=== PATIENT | male | born 1945 | race Hispanic/Latino ===

== ENCOUNTER 2019-06-10 09:46 | Inpatient (IN) | payer OTHER ==
[~2019-06-10] VITALS: Ht 175.3 cm; Wt 108.0 kg
[2019-06-10] MEDS ORDERED: ADENOSINE 3 MG/ML 2ML VIAL IV ONE (09:57)
[2019-06-10] MEDS ORDERED: DILTIAZEM HCL 125 MG/25 ML VIAL IV ONE (10:05)
[2019-06-10 10:16] LABS: BASOPHILS % (AUTO) 0.3 % (0.0-5.0); EOSINOPHILS % (AUTO) 0.1 % (0.0-8.0); HEMATOCRIT 45.9 % (42-54); LYMPHOCYTES % (AUTO) 4.3 % (21.0-51.0); MEAN CORPUSCULAR HGB CONC 34.4 g/dL (32.0-36.0); MONOCYTES % (AUTO) 1.9 % (3.0-13.0); NEUTROPHILS % (AUTO) 93.4 % (40.0-77.0); PLATELET COUNT (AUTO) 225 K/uL (130-400); RED CELL DISTRIBUTION WIDTH 13.1 % (11.0-15.5); WHITE BLOOD COUNT (AUTO) 11.6 K/uL (4.8-10.8)
[2019-06-10 10:23] LABS: CREATININE 1.2 mg/dL (0.5-1.5); POTASSIUM 3.9 mmol/L (3.5-5.1)
[2019-06-10 10:35] LABS: INR 0.98 (0.85-1.15); PARTIAL THROMBOPLASTIN TIME 25.9 SEC (26.3-35.5); PROTHROMBIN TIME 10.3 SEC (9.6-11.6)
[2019-06-10] MEDS ORDERED: SODIUM CHLORIDE 0.9% 1000ML 1,000 ML IV ONE (11:45)
[2019-06-10] MEDS ORDERED: DILTIAZEM 125MG+100 ML NS 125 ML IV SCH (12:15)
[2019-06-10] MEDS ORDERED: ACETAMINOPHEN-CODEINE 300/30MG TAB PO PRN (12:45)
[2019-06-10] MEDS ORDERED: LACTULOSE 20 GM/30 ML UDCUP PO PRN (12:45)
[2019-06-10] MEDS ORDERED: ONDANSETRON HCL 4 MG/2 ML VIAL IV PRN (12:45)
[2019-06-10] MEDS ORDERED: LIDOCAINE HCL-MPF 1% 2ML VIAL IV PRN (12:45)
[2019-06-10] MEDS ORDERED: DILTIAZEM HCL 60 MG TABLET PO SCH (12:45)
[2019-06-10] MEDS ORDERED: DIPHENHYDRAMINE HCL 25 MG CAPSULE PO PRN (12:45)
[2019-06-10] MEDS ORDERED: GLUCAGON 1MG KIT 1 MG ML IM PRN (12:45)
[2019-06-10] MEDS ORDERED: DILTIAZEM HCL 125 MG/25 ML 125 MG in SODIUM CHLORIDE 0.9% 100 ML IV PRN (12:45)
[2019-06-10] MEDS ORDERED: POTASSIUM CHLORIDE 20MEQ/100ML 100 ML IV PRN (12:45)
[2019-06-10] MEDS ORDERED: NITROGLYCERIN 0.4 MG SL TAB SL PRN (12:45)
[2019-06-10] MEDS ORDERED: ACETAMINOPHEN 325 MG TAB PO PRN (12:45)
[2019-06-10] MEDS ORDERED: DEXTROSE 50%-WATER 50 ML DISP.SYRIN IV PRN (12:45)
[2019-06-10] MEDS ORDERED: POTASSIUM CHLORIDE 10% ELIXIR 20 MEQ/15 ML UDCUP PO PRN (12:45)
[2019-06-10] MEDS ORDERED: HYDRALAZINE HCL 20 MG/ML VIAL IV PRN (12:45)
[2019-06-10] MEDS ORDERED: DILTIAZEM HCL 60 MG TABLET ONE ×2 (13:03→23:38)
[2019-06-10] MEDS ORDERED: ENOXAPARIN SODIUM 100 MG/1 ML SQ ONE (13:03)
[2019-06-10] MEDS: BENZONATATE 100 MG CAPSULE PO SCH (14:00)
[2019-06-10] MEDS ORDERED: ONDANSETRON HCL 4 MG/2 ML VIAL ONE (14:32)
[2019-06-10] MEDS: INSULIN HUMULIN R 100 UNIT/ML 3ML SQ SCH ×2 (16:30→21:00)
[2019-06-10] MEDS ORDERED: ACETAMINOPHEN 325 MG TAB ONE (20:08)
[2019-06-10] MEDS ORDERED: LOVA10TA2 PO (22:23)
[2019-06-10] MEDS ORDERED: LOSA1TAB54 PO (22:23)
[2019-06-10] MEDS ORDERED: AEC81 PO (22:23)
[2019-06-10] MEDS ORDERED: METF-444 PO (22:23)
[2019-06-10] MEDS ORDERED: AMLO5TAB9 PO (22:23)
[2019-06-10] MEDS ORDERED: LATA7.5D OP (22:23)
[2019-06-10] MEDS ORDERED: FAMOTIDINE 20MG TAB 20 MG TAB ONE (23:38)
[2019-06-11] VITALS (23 sets, daily range): BP systolic 106–138; BP diastolic 65–86
[2019-06-11 06:23] LABS: BASOPHILS % (AUTO) 0.4 % (0.0-5.0); EOSINOPHILS % (AUTO) 1.6 % (0.0-8.0); HEMATOCRIT 42.6 % (42-54); LYMPHOCYTES % (AUTO) 22.7 % (21.0-51.0); MEAN CORPUSCULAR HEMOGLOBIN 30.1 pg (27.0-33.0); MEAN CORPUSCULAR HGB CONC 33.5 g/dL (32.0-36.0); MEAN CORPUSCULAR VOLUME 89.8 fL (79-99); MONOCYTES % (AUTO) 7.4 % (3.0-13.0); NEUTROPHILS % (AUTO) 67.9 % (40.0-77.0); PLATELET COUNT (AUTO) 203 K/uL (130-400); RED BLOOD CELL COUNT(AUTO) 4.75 MIL/uL (4.50-6.20); RED CELL DISTRIBUTION WIDTH 13.1 % (11.0-15.5); WHITE BLOOD COUNT (AUTO) 5.1 K/uL (4.8-10.8)
--- NOTE | 2019-06-11 06:30 | NUR ---
ADMISSION RECEIVED FROM ER VIA STRETCHER. WALKED TO BED AND PLACED ON MONITOR,NIBP,PULSE OXIMETER. CALL LIGHT GIVEN AND EXPLAINED. DENIES PAIN. ENCOURAGED TO CALL FOR WANTS OR NEEDS. NPO AND AWARE OF THIS. FAMILY MEMBER AT BEDSIDE.
[2019-06-11 06:35] LABS: MAGNESIUM 1.9 mg/dL (1.80-2.40); PHOSPHORUS 2.5 mg/dL (2.5-4.9); POTASSIUM 3.2 mmol/L (3.5-5.1); THYROID STIMULATING HORMONE 0.63 uIU/mL (0.36-3.74)
[2019-06-11] MEDS ORDERED: REGADENOSON 0.4 MG/5 ML PF SYG IVP SCH (07:15)
[2019-06-11] MEDS: INSULIN HUMULIN R 100 UNIT/ML 3ML SQ SCH ×4 (07:30→21:00)
[2019-06-11] MEDS: SODIUM CHLORIDE 0.9% 1000ML 1,000 ML IV SCH ×2 (08:37→18:37)
[2019-06-11] MEDS ORDERED: ENOXAPARIN SODIUM 40 MG/0.4 ML SYRINGE SQ SCH (09:00)
[2019-06-11] MEDS: BENZONATATE 100 MG CAPSULE PO SCH ×3 (09:00→21:00)
[2019-06-11] MEDS: ASPIRIN 325 MG TABLET PO SCH (12:05)
[2019-06-11] MEDS: METOPROLOL TARTRATE 25 MG TAB PO SCH ×3 (12:05→20:52)
[2019-06-11] MEDS: FAMOTIDINE 20MG TAB 20 MG TAB PO SCH ×3 (12:06→20:55)
--- NOTE | 2019-06-11 13:43 | NUR ---
DC PLAN PER PATIENT IS INDEPENDENT, LIVES WITH SPOUSE AND DAUGHTER, HAS CPAP AT HOME, NO PROVIDER OR MEDICAL SERVICES AND FEELS SAFE TO RETURN HOME. Addendum: 06/11/19 at 1345 by BEVERLY ALEXIS Amended: Links added.
[2019-06-11] MEDS: POTASSIUM CHLORIDE 20 MEQ ERTAB PO PRN ×3 (14:45→18:27)
--- NOTE | 2019-06-11 16:26 | NUR ---
RD NOTIFICATION Dx: Afib, Constipation. Hx: DM, Obesity, Hyperlipidemia, HTN. Diet: Heart Healthy. LBM: 06/10 as per pt. No difficulty chewing or swallowing food. No nausea, emesis, diarrhea at this time. PO intake 100% and has good appetite as per pt and family. He claims to follow DM diet recommendations at home, takes meds and checks BG levels regularly. Pt stated he has difficulty with normal BM and is concerned. At home he admits to taking laxatives and stool softeners regularly due to this. Pt also admits to performing minimal physical activity. RD encouraged pt to increase physical activity, increase dietary fiber and drink plenty fluids daily. RD provided DM and Heart Healthy diet and nutrition education. Pt and family asked questions, RD answered and pt/family verbalized understanding. Materials provided. RD recommends continue current diet, add 75gmCCD to diet order. Diet and nutrition education provided. RD will continue to monitor and follow up as needed. Thank you. Rupal Reyes MS, RDN Addendum: 06/11/19 at [address] RD Amended: Links added.
--- NOTE | 2019-06-11 16:28 | NUR ---
DIET EDUCATION Pt claims to follow DM diet recommendations at home, takes meds and checks BG levels regularly. Pt stated he has difficulty with normal BM and is concerned. At home he admits to taking laxatives and stool softeners regularly due to this. Pt also admits to performing minimal physical activity. RD encouraged pt to increase physical activity, increase dietary fiber and drink plenty fluids daily. RD provided DM and Heart Healthy diet and nutrition education. Pt and family asked questions, RD answered and pt/family verbalized understanding. Materials provided. Addendum: 06/11/19 at [address] RD Amended: Links added.
--- NOTE | 2019-06-11 19:00 | NUR ---
Assumed care at 1900. Patient resting comfortably in bed watching television. Patient in no apparent distress. No pain reported. Vital signs stable. Please see physical assessment for further detail. Will continue to monitor.
[2019-06-12] VITALS (21 sets, daily range): BP systolic 113–137; BP diastolic 65–87
[2019-06-12] MEDS: SODIUM CHLORIDE 0.9% 1000ML 1,000 ML IV SCH ×2 (04:37→14:37)
[2019-06-12] MEDS: INSULIN HUMULIN R 100 UNIT/ML 3ML SQ SCH ×2 (07:30→11:30)
[2019-06-12] MEDS ORDERED: DILTIAZEM HCL 120 MG CAP.SR.24H PO SCH (09:00)
[2019-06-12] MEDS ORDERED: APIXABAN 5 MG TABLET PO SCH (09:00)
[2019-06-12] MEDS: BENZONATATE 100 MG CAPSULE PO SCH ×2 (09:46→14:00)
[2019-06-12] MEDS: ASPIRIN 325 MG TABLET PO SCH (09:47)
[2019-06-12] MEDS: FAMOTIDINE 20MG TAB 20 MG TAB PO SCH (09:47)
[2019-06-12] MEDS ORDERED: DILT120C89 PO (11:31)
[2019-06-12] MEDS ORDERED: APIX5TAB PO (11:31)
[2019-06-12] MEDS ORDERED: ATOR20TA65 PO (11:31)
[2019-06-12] MEDS ORDERED: LATANOPROST 2.5 ML DROPS OU SCH (21:00)
[2019-06-13] MEDS ORDERED: METFORMIN HCL 500 MG TABLET PO SCH (08:00)
[2019-06-13] MEDS ORDERED: ASPIRIN 81 MG EC TAB PO SCH (08:00)
== END 2019-06-12 16:06 | disposition home or self-care (01) | DRG 311 ==
LOC: EDH 09:46 → EDHIP 11:30 → 2CH 06-11 06:26
PROVIDERS: ADMIT Internal Medicine; ATTEND Internal Medicine
DX: I20.9 Angina pectoris, unspecified (principal); I48.3 Typical atrial flutter; I10 Essential (primary) hypertension; E78.5 Hyperlipidemia, unspecified; E66.9 Obesity, unspecified; E11.9 Type 2 diabetes mellitus without complications; I48.91 Unspecified atrial fibrillation; G47.33 Obstructive sleep apnea (adult) (pediatric); K59.00 Constipation, unspecified; Z68.35 Body mass index [BMI] 35.0-35.9, adult; Z72.0 Tobacco use; Z91.19 Patient's noncompliance with other medical treatment and regimen; Z79.899 Other long term (current) drug therapy; Z79.82 Long term (current) use of aspirin; Z79.01 Long term (current) use of anticoagulants
CPT/HCPCS: 36415; 71045; 78452; 80048; 82550; 82948; 83036; 83735; 84100; 84439; 84443; 84484; 85025; 85610; 85730; 93005; 93017; 93306; 96374; 99291; A9500; G0378; J0153; J1650; J2405; J2785; J3490; J7030

== ENCOUNTER → 2019-10-08 | Outpatient (CLI) | payer OTHER ==
[~2019-10-08] MED LIST: AEC81 PO; APIX5TAB PO; ATOR20TA65 PO; DILT120C89 PO; LATA7.5D OP; METF-444 PO
== END | disposition home or self-care (01) ==
LOC: RAH 12:53
PROVIDERS: ATTEND Family Medicine
DX: I73.89 Other specified peripheral vascular diseases (principal); I70.203 Unspecified atherosclerosis of native arteries of extremities, bilateral legs
CPT/HCPCS: 93922; 93925

== ENCOUNTER → 2019-12-25 | Outpatient (CLI) | payer OTHER | END | disposition home or self-care (01) | LOC: RAH 10:48 | PROVIDERS: ATTEND Internal Medicine Cardiovascular Disease | DX: Z13.6 Encounter for screening for cardiovascular disorders (principal) | CPT/HCPCS: 75571 ==

== ENCOUNTER → 2020-10-26 | Outpatient (CLI) | payer OTHER | END | disposition home or self-care (01) | LOC: RAH 07:38 | PROVIDERS: ATTEND Family Medicine | DX: I11.9 Hypertensive heart disease without heart failure (principal) | CPT/HCPCS: 76770; 93975 ==

== ENCOUNTER → 2020-12-16 | Outpatient (CLI) | payer OTHER | END | disposition home or self-care (01) | LOC: RAH 09:38 | PROVIDERS: ATTEND Internal Medicine Cardiovascular Disease | DX: I31.3 Pericardial effusion (noninflammatory) (principal) | CPT/HCPCS: 93306; 93356 ==

== ENCOUNTER → 2021-02-05 | Outpatient (CLI) | payer OTHER | END | disposition home or self-care (01) | LOC: SHCH 02-04 10:27 | PROVIDERS: ATTEND Internal Medicine Cardiovascular Disease | DX: I25.3 Aneurysm of heart (principal); R55 Syncope and collapse; I08.8 Other rheumatic multiple valve diseases; I48.0 Paroxysmal atrial fibrillation | CPT/HCPCS: 93306; 93356 ==

== ENCOUNTER → 2023-08-10 | Outpatient (CLI) | payer OTHER | END | disposition home or self-care (01) | LOC: SHCH 14:32 | PROVIDERS: ATTEND Internal Medicine Cardiovascular Disease | DX: I25.10 Atherosclerotic heart disease of native coronary artery without angina pectoris (principal); I10 Essential (primary) hypertension; E11.9 Type 2 diabetes mellitus without complications; E78.5 Hyperlipidemia, unspecified | CPT/HCPCS: 93306 ==

== ENCOUNTER → 2024-08-19 | Outpatient (CLI) | payer OTHER ==
--- NOTE | 2024-08-21 08:23 | HMCSR ---
APPROVED REPORT EXAM: Two-dimensional and M-mode echocardiogram with Doppler and color Doppler. INDICATION ICD: I35.0 Non-rheumatic aortic valve stenosis Hypertension 2D Dimensions RVDd4.0 cmLVEF(%)63.0 (>50%)LVED Vol(simp.)95.0 mL IVSd1.3 (0.7-1.1cm)FS(%)34 %LVES Vol(simp.)41.0 mL LVDd4.7 (3.8-5.6cm)Ao Root(2D)3.7 (2.0-3.7cm)LVEF(%, simp.)56 % PWd1.3 (0.7-1.1cm)LVOT diam2.4 (1.8-2.4cm)LA ESV INDEX (BP)21.20 mL/m2 LVDs3.1 (2.5-4.0cm)IVC diam1.5 cm Aortic Valve AoV Vmax1.6 m/Nicho Peak GR10.1 mmHgLVOT Vmax1.0 m/s AoV VTI0.3 mAo Mean GR5.2 mmHgLVOT VTI0.23 m MU (VMAX)3.3 cm2AVA (VTI) 3.3 cm2 Mitral Valve MV E Vmax65.9 cm/sDECEL Azwv326 ms MV A Vmax84.8 cm/sP 1/2 T81 ms E/A ratio0.8MVA (PHT)2.7 cm2 TDI E/E' Medial8.5E/E' Lateral8.0 Pulmonary Valve PV Vmax1.2 m/sPV VTI0.29 mPV Mean GR3 mmHg PV Peak GR6.0 mmHg Tricuspid Valve TR Vmax2.7 m/sRAP (EST) 3 ckPfWTRG87.9 mmHg TR Peak GR28.9 mmHg Left Ventricle Left ventricular cavity size is normal. There is normal LV segmental wall motion. There is mild major ntric left ventricular hypertrophy. LVEF is 55-60%. No left ventricle thrombus noted on this study. G rade 1 diastolic dysfunction Right Ventricle The right ventricle is normal size. The right ventricular systolic function is normal. Atria The left atrium size is normal. The right atrium size is normal. Aortic Valve Aortic valve is trileaflet. Aortic valve leaflets are sclerotic but open well. No aortic regurgitatio n is present. There is no aortic valvular stenosis. Mitral Valve Mitral valve leaflets are mildly sclerotic but open well. Mitral regurgitation is trace. There is no mitral valve stenosis. Tricuspid Valve The tricuspid valve leaflets appear normal. There is trace tricuspid regurgitation. Pulmonic Valve The pulmonic valve leaflets are thin and pliable; valve motion is normal. There is trace pulmonic aysha vular regurgitation. Great Vessels The aortic root is normal in size. The IVC is normal in size and collapses >50% with inspiration. Pericardium No pericardial effusion. Conclusion Left ventricular cavity size is normal. There is mild concentric left ventricular hypertrophy. LVEF is 55-60%. Grade 1 diastolic dysfunction The right ventricle is normal size. The left atrium size is normal. Aortic valve is trileaflet. Aortic valve leaflets are sclerotic but open well. No aortic regurgitation is present. There is no aortic valvular stenosis. Mitral valve leaflets are mildly sclerotic but open well. Mitral regurgitation is trace. There is trace tricuspid regurgitation. There is trace pulmonic valvular regurgitation. The aortic root is normal in size. The IVC is normal in size and collapses >50% with inspiration. No pericardial effusion.
== END | disposition home or self-care (01) ==
LOC: SHCH 09:41
PROVIDERS: ATTEND Internal Medicine Cardiovascular Disease
DX: I08.0 Rheumatic disorders of both mitral and aortic valves (principal); I10 Essential (primary) hypertension
CPT/HCPCS: 93306